=== PATIENT | male | born 1950 | race Hispanic/Latino ===

== ENCOUNTER 2018-02-16 06:06 | Day surgery (SDC) | payer MEDICARE ==
[2018-02-09 11:50] VITALS: BMI 25.8
[2018-02-16 06:45] VITALS: TEMP 98.1
[2018-02-16 07:02] LABS: INR 0.96
[2018-02-16 07:03] LABS: BASO # 0.03 K/mm3 (0.0-2.0); BASO % 0.5 % (0.0-3.0); EOS # 0.2 (0.0-0.7); GRAN # 3.42 (1.4-6.5); GRAN % 58.9 % (50.0-68.0); HEMOGLOBIN 14.4 g/dL (14.0-18.0); LYMPH # 1.7 (1.2-3.4); LYMPH % 28.8 % (22.0-35.0); MEAN CELL VOLUME 85.8 fl (80.0-105.0); MEAN CORPUSCULAR HGB CONC 36.2 g/dl (31.0-37.0); MONO # 0.5 (0.1-0.6); MONO % 7.8 % (1.0-6.0); RBC 4.64 10^6/uL (3.5-6.1); WHITE BLOOD COUNT 5.8 10^3/ul (4.5-11.0)
[2018-02-16 07:05] LABS: PARTIAL THROMBOPLASTIN TIME 27.4 Seconds (25.1-36.5)
[2018-02-16] MEDS ORDERED: Phenylephrine 10 mg/ml Inj ONE (07:44)
[2018-02-16] MEDS ORDERED: Iodixanol 320 MG/ML 100 ML BOTTLE IV ONE (07:45)
[2018-02-16] MEDS ORDERED: Iohexol 350mgl/ml 50 ML ONE (07:45)
[2018-02-16] MEDS ORDERED: DiphenhydrAMINE 50 mg/ml Inj ONE (07:45)
[2018-02-16] MEDS ORDERED: Nitroglycerin 50mg in D5W 0 MG/0 ML BOTTLE IV ONE (07:45)
[2018-02-16] MEDS ORDERED: Famotidine 20mg/50ml 20 MG/50 ML BAG IVPB ONE (07:45)
[2018-02-16] MEDS ORDERED: Iodixanol 320 MG/ML 200 ML BOTTLE IV ONE (07:45)
[2018-02-16 07:58] LABS: BLOOD UREA NITROGEN 15 mg/dL (7-21); CALCIUM 9.5 mg/dL (8.4-10.5); GFR AFRICAN-AMERICAN > 60; GFR NON-AFRICAN AMERICAN 55; HDL CHOLESTEROL 27 mg/dL (29-60)
[2018-02-16] MEDS ORDERED: Midazolam 2 MG/2 ML VIAL ONE ×2 (07:59→08:03)
[2018-02-16 08:08] LABS: LDL CHOLESTEROL 74 mg/dL (0-129)
[2018-02-16] MEDS ORDERED: Lidocaine PF 2% (5 ml) Inj (For Cardiac Arrhy) ONE (08:12)
[2018-02-16] MEDS ORDERED: Sodium Chloride 0.9% 1,000 ML IV SCH (10:30)
--- NOTE | 2018-02-16 12:31 | CARDCATH ---
Copied To: Darell Gonzalez MD Attending MD: Darell Gonzalez MD PROCEDURE DATE: 02/16/2018 HISTORY: The patient is a 67-year-old male with multiple cardiac risk factors including hypercholesterolemia, hypertriglyceridemia, who presents with intermittent chest pain and abnormal stress test. A cardiac catheterization was recommended. PROCEDURE: Left heart catheterization with coronary arteriography and left ventriculogram. The right femoral artery was cannulated with 6-German sheath. There were no complications. I performed moderate sedation, which included the presence of an independent trained observer that assisted in monitoring the patient's level of consciousness and physiologic status. After administration of Versed and fentanyl, my intra service time was 15 minutes. Findings on catheterization revealed a left ventricle that contracted normally. The right coronary artery was a dominant vessel. In the proximal portion of the RCA, there was an eccentric 50% stenosis at the ostium of the RCA. The left main artery revealed intimal irregularities including a 20-30% stenosis in its distal portion. The LAD and diagonal vessels revealed diffuse intimal irregularities without critical lesions. The circumflex artery revealed diffuse atherosclerosis throughout its coronary tree. The left ventricle was found to be normal with an EF of approximately 60%. Angio-Seal was used to close the femoral artery site. The patient tolerated the procedure well. In summary, the procedure revealed a 50% ostial RCA stenoses as well as 20-30% distal left main stenoses. LV function is normal. Given these findings, the patient's treatment will be medical with an aggressive anti-atherosclerotic program which needs to include exercise and reducing his carbohydrate intake given his high triglycerides. Darell Gonzalez MD
[2018-02-16 12:49] VITALS: PULSE 70
[2018-02-16 12:50] VITALS: RESP 16; O2SAT 97
--- NOTE | 2018-02-16 15:16 | CARD ---
APPROVED REPORT Date of service: 02/16/2018 EKG Measurement Heart [id number] <Conclusion> Normal sinus rhythm Right bundle branch block Abnormal ECG
[2018-02-16 15:28] VITALS: BP 112/75
== END 2018-02-16 14:00 | disposition home or self-care (01) ==
LOC: CATH 06:06
PROVIDERS: ATTEND Internal Medicine Cardiovascular Disease
DX: I25.10 Atherosclerotic heart disease of native coronary artery without angina pectoris (principal); E78.1 Pure hyperglyceridemia; E78.00 Pure hypercholesterolemia, unspecified
CPT/HCPCS: 36415; 80048; 80061; 85025; 85610; 85730; 86850; 86900; 93005; 93458; 99152; C1760; C1769; C2629; J1200; J1644; J2250; J2930; J3010; J7030; Q9966; Q9967

== ENCOUNTER 2018-11-04 07:47 | Day surgery (SDC) | payer MEDICARE ==
[2018-10-27 17:11] VITALS: BMI 24.9
[2018-11-04] MEDS ORDERED: Propofol 10 mg/ml Inj (20 ML) ONE ×2 (08:37→09:02)
[2018-11-04] MEDS ORDERED: Sodium Chloride 0.9% 1,000 ML IV SCH (08:45)
[2018-11-04 11:05] VITALS: BP 118/84; PULSE 64; RESP 18; TEMP 97.9; O2SAT 98
== END 2018-11-04 10:23 | disposition home or self-care (01) ==
LOC: ENDO 07:47
PROVIDERS: ATTEND Internal Medicine Gastroenterology
DX: K21.0 Gastro-esophageal reflux disease with esophagitis (principal); K44.9 Diaphragmatic hernia without obstruction or gangrene; K29.70 Gastritis, unspecified, without bleeding; K31.7 Polyp of stomach and duodenum; I10 Essential (primary) hypertension
CPT/HCPCS: 43239; 88305; 88312; 88342; J2001; J2704; J7030; J7040